=== PATIENT | male | born 1985 | race Two or more races ===

== ENCOUNTER 2018-01-04 07:10 | Emergency (ER) | payer SELFPAY ==
[~2018-01-04] VITALS: Ht 177.8 cm; Wt 74.8 kg
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
[2018-01-04] MEDS ORDERED: IBUPROFEN 600 MG TABLET PO ONE ×2 (07:30→07:39)
[2018-01-04 07:49] VITALS: BP 122/84
--- NOTE | 2018-01-04 07:51 | NUR ---
Patient discharged to home in stable condition. Written and verbal after care instructions given. Patient verbalizes understanding of instruction.
== END 2018-01-04 07:51 | disposition home or self-care (01) ==
LOC: ER 07:12
DX: S39.012A Strain of muscle, fascia and tendon of lower back, initial encounter (principal); V49.49XA Driver injured in collision with other motor vehicles in traffic accident, initial encounter; Y93.89 Activity, other specified; Y92.413 State road as the place of occurrence of the external cause; Y99.8 Other external cause status
CPT/HCPCS: A4606; Z7610